=== PATIENT | female | born 1940 | race African-American/Black ===

== ENCOUNTER 2019-09-20 19:30 | Inpatient (IN) | payer BC ==
[~2019-09-20] VITALS: Ht 167.6 cm; Wt 54.4 kg
--- NOTE | 2019-09-20 19:32 | Emergency Room Report ---
History of Present Illness General Chief Complaint: General Complaint Source: EMS (Misbah Galeano MD) Present Illness HPI Patient is a 79-year-old female presents after increased generalized weakness and decreased oral intake. Patient had previously had history of hypertension. She was noted to have increased lethargy and not getting out of bed for several days. She had previously been ambulatory. She had not been vomiting or having any diarrhea. Prior history of thyroid disease. Patient had been brought in by EMS. (Misbah Galeano MD) Allergies: Coded Allergies: No Known Allergies (Unverified , 09/20/19) Patient History Past Medical History: see triage record Reviewed Nursing Documentation: PMH: Agreed; PSxH: Agreed (Misbah Galeano MD) Nursing Documentation-PMH Hx Hypertension: Yes (Misbah Galeano MD) Review of Systems All Other Systems: limited - Review of systems: Review systems is limited by patient's being a poor historian (Misbah Galeano MD) Physical Exam Vital Signs Date Time Temp Pulse Resp B/P (MAP) Pulse Ox O2 Delivery O2 Flow Rate FiO2 09/20/19 19:26 98.2 75 16 139/91 (107) 98 Room Air Sp02 EP Interpretation: reviewed, normal General Appearance: alert, GCS 15, Chronically Ill Head: atraumatic ENT: normal ENT inspection, hearing grossly normal, normal voice Neck: normal inspection, full range of motion, supple, no bony tend Respiratory: normal inspection, no respiratory distress, no retraction, no wheezing Cardiovascular #1: regular rate, rhythm, no edema Gastrointestinal: normal inspection, normal bowel sounds, non tender, soft, no guarding, no hernia Genitourinary: no CVA tenderness Musculoskeletal: normal inspection, back normal, normal range of motion Neurologic: alert, responsive, speech normal, normal inspection Psychiatric: normal inspection, judgement/insight normal, mood/affect normal (Misbah Galeano MD) Medical Decision Making Diagnostic Impression: Primary Impression: Failure to thrive in adult Additional Impressions: UTI (urinary tract infection) Qualified Codes: N30.00 - Acute cystitis without hematuria GA (acute kidney injury) ER Course Patient presented for generalized weakness. Differential diagnosis included was not limited to anemia, urinary tract infection, electrolyte abnormality, hypothyroidism, myocardial infarction, myasthenia gravis, dehydration, among others. Because of complexity of patient's case laboratory tests and imaging studies were ordered. Patient was noted to have recent decreased appetite as well as weight loss. She had not been taking oral fluids and had been staying in bed for several days. Patient was noted to be significantly dehydrated. Patient was started on IV fluids. Initially she was refusing treatment however she became more cooperative subsequently and agreed to proceed with care. Patient's laboratory testing showed some evidence of hypothyroidism and this is likely due to patient not taking her medications for several days. She was noted to have markedly elevated BUN/creatinine consistent with dehydration. Dr. Brody Xiong was contacted for inpatient management (Misbah Galeano MD) ER Course Patient signed out to me. She presents with chief complaint of failure to thrive. She is not eating or taking her medication. She is dehydrated based on the laboratory data with very high BUN and creatinine. Patient IV fluid here. She does have evidence of urinary tract infection. Antibiotics given. Will admit for IV fluid and IV antibiotics. (Clive Siddiqui MD) Last Vital Signs Date Time Temp Pulse Resp B/P (MAP) Pulse Ox O2 Delivery O2 Flow Rate FiO2 09/20/19 19:26 98.2 75 16 139/91 (107) 98 Room Air Status: unchanged (Misbah Galeano MD) Disposition: ADMITTED INPATIENT Condition: Serious Misbah Galeano MD Sep 20, 2019 19:32 Clive Siddiqui MD Sep 20, 2019 22:12
[2019-09-20 19:45] VITALS: BP 139/91
--- NOTE | 2019-09-20 19:45 | NUR ---
ED Nurse Note: Pt brought in to ED from home, family reports pt FTT, not eating or getting out of bed x5 days, Pt is A&Ox3, VSS, BS 116, family at bedside
[2019-09-20 20:45] LABS: HEMATOCRIT 45.4 % (37.0-47.0); HEMOGLOBIN 14.6 G/DL (12.0-16.0); MEAN CORPUSCULAR VOLUME 87 FL (80-99); PLATELET COUNT 186 K/UL (150-450); RED BLOOD COUNT 5.22 M/UL (4.20-5.40); RED CELL DISTRIBUTION WIDTH 11.7 % (11.6-14.8); WHITE BLOOD COUNT 9.5 K/UL (4.8-10.8)
[2019-09-20 20:46] LABS: BASOPHILS % (AUTO) 0.4 % (0.0-2.0); MONOCYTES % (AUTO) 3.7 % (1.0-10.0); NEUTROPHILS % (AUTO) 89.9 % (45.0-75.0)
[2019-09-20 20:47] LABS: ANION GAP 9 mmol/L (5-15); BLOOD UREA NITROGEN 77 mg/dL (7-18); CARBON DIOXIDE 31 MMOL/L (21-32); CHLORIDE 109 MMOL/L (98-107); CREATININE 1.3 MG/DL (0.55-1.30); POTASSIUM 4.4 MMOL/L (3.5-5.1); SODIUM 149 MMOL/L (136-145)
[2019-09-20 20:51] LABS: INR 1.1 (0.9-1.1)
[2019-09-20 20:59] LABS: ALANINE AMINOTRANSFERASE 46 U/L (12-78); ALBUMIN 3.5 G/DL (3.4-5.0); ALBUMIN/GLOBULIN RATIO 0.6 (1.0-2.7); ALKALINE PHOSPHATASE 72 U/L (46-116); ASPARTATE AMINO TRANSFERASE 31 U/L (15-37); BILIRUBIN,TOTAL 0.5 MG/DL (0.2-1.0)
--- NOTE | 2019-09-20 21:27 | NUR ---
ED Nurse Note: Urine sent to lab
[2019-09-20 21:45] VITALS: BP 141/78
[2019-09-20 21:58] LABS: APPEARANCE,URINE CLEAR; BILIRUBIN, URINE NEGATIVE (NEGATIVE); GLUCOSE, URINE (UA) NEGATIVE (NEGATIVE); KETONES,URINE 3+ (NEGATIVE); LEUKOCYTE ESTERASE ,URINE 3+ (NEGATIVE); NITRITE,URINE NEGATIVE (NEGATIVE); PH,URINE 6 (4.5-8.0); PROTEIN,URINE 2+ (NEGATIVE); UROBILINOGEN,URINE NORMAL MG/DL (0.0-1.0)
[2019-09-20 22:00] LABS: COLOR,URINE YELLOW
[2019-09-20] MEDS ORDERED: cefTRIAXone 1 GM in NS 55 ML IVPB ONE (22:15)
--- NOTE | 2019-09-20 23:25 | NUR ---
TRANSFER TO FLOOR: Patient transferred to as ordered, per Dr Nuñez. Report given to KATINA Bruno. Belongings and medications given to . Family and or S/O informed of transfer.
--- NOTE | 2019-09-21 | NUR ---
Nurse Note: Pt alert and oriented x4, lethargic, Daughter at bedside. Belongings signed, oriented to room. Family reports pt FTT, x5 days, loss of recently 09/16/19. not eating or getting out of bed x5 days, bowel sounds hypoactive. On bedrest, lying supine, bed is locked in lowest position side rails x2, bed alarm on. will continue to monitor
--- NOTE | 2019-09-21 01:43 | Diagnostic Imaging Report ---
EXAM: US Duplex Bilateral Lower Extremities Veins CLINICAL HISTORY: DVT TECHNIQUE: Real-time duplex ultrasound scan of the bilateral lower extremity veins integrating B-mode two-dimensional vascular structure, Doppler spectral analysis, color flow Doppler imaging and compression. COMPARISON: No relevant prior studies available. FINDINGS: Right deep veins: Unremarkable. No DVT in the right common femoral, femoral, proximal deep femoral or popliteal veins. The veins demonstrate normal color flow, are normally compressible, with normal phasic flow and/or augmentation response. Right superficial veins: Unremarkable. No thrombus in the visualized right great saphenous vein. Left deep veins: Unremarkable. No DVT in the left common femoral, femoral, proximal deep femoral or popliteal veins. The veins demonstrate normal color flow, are normally compressible, with normal phasic flow and/or augmentation response. Left superficial veins: Unremarkable. No thrombus in the visualized left great saphenous vein. Soft tissues: No acute findings. No popliteal cyst. IMPRESSION: Normal bilateral lower extremity duplex venous ultrasound.
[2019-09-21 04:00] VITALS: BP 136/85
--- NOTE | 2019-09-21 07:15 | NUR ---
Pt resting in bed, VS stable, Awake, A/O x 2, denies pain, no SOB noted, Dressing CDI, poor intake, encourage to increase intake, pts daughter at bedside. pts on IVF , bed in low position, bed alarm on , call light within reach, fall precaution maintained. will continue to monitor.
[2019-09-21 08:00] VITALS: BP 150/80
--- NOTE | 2019-09-21 08:01 | NUR ---
HAND-OFF: Report given to KATINA Cortes.
[2019-09-21] MEDS: Heparin 5000 units/ml inj SUBQ SCH ×2 (08:41→08:46)
[2019-09-21 10:53] LABS: ALANINE AMINOTRANSFERASE 37 U/L (12-78); ALBUMIN 2.9 G/DL (3.4-5.0); ALBUMIN/GLOBULIN RATIO 0.7 (1.0-2.7); ALKALINE PHOSPHATASE 58 U/L (46-116); ANION GAP 5 mmol/L (5-15); ASPARTATE AMINO TRANSFERASE 26 U/L (15-37); BILIRUBIN,TOTAL 0.4 MG/DL (0.2-1.0); BLOOD UREA NITROGEN 55 mg/dL (7-18); CALCIUM 10.1 MG/DL (8.5-10.1); CARBON DIOXIDE 31 MMOL/L (21-32); CHLORIDE 114 MMOL/L (98-107); CREATININE 0.9 MG/DL (0.55-1.30); POTASSIUM 4.2 MMOL/L (3.5-5.1); SODIUM 150 MMOL/L (136-145)
[2019-09-21 12:00] VITALS: BP 151/86
[2019-09-21] MEDS ORDERED: Tubing Blood Filter IV ONE (15:24)
[2019-09-21] MEDS ORDERED: D5NS 1000ml IV ONE (15:24)
[2019-09-21] MEDS ORDERED: 1/2 NS 1000ml IV ONE (15:24)
[2019-09-21] MEDS ORDERED: NS 275ml ONE (15:24)
[2019-09-21 16:00] VITALS: BP 157/87
--- NOTE | 2019-09-21 19:35 | NUR ---
NURSE NOTES: Pt is in bed, awake and verbal. No acute distress noted. Vitas stable. Pt's daughter Elena in the room with patient. Pt will be repositioned frequently.Pt's intake and output will be monitored.[facility] HD service was called by last shift nurse for HD tomorrow. Pt has CT Head and CT CHEST ABDOMEN PELVIS ordered. Pt will be kept NPO past midnight. Bed locked low in position,side rails up and call light within reach.
[2019-09-21 20:00] VITALS: BP 146/81
[2019-09-22] VITALS: BP 125/83
--- NOTE | 2019-09-22 03:00 | NUR ---
NURSE NOTES: Pt has poor oral intake, and refuses to eat.
[2019-09-22 04:00] VITALS: BP 153/76
--- NOTE | 2019-09-22 04:00 | NUR ---
NURSE NOTES: Pt is in bed, asleep. No acute distress noted. Pt is currently NPO for CT scan .
--- NOTE | 2019-09-22 05:51 | NUR ---
NURSE NOTES: Pt refused to take Synthroid dose despite education and encouragement. Pt states, " My daughter will give it to me, she is coming".
--- NOTE | 2019-09-22 07:25 | NUR ---
HAND-OFF: Report given to Jean RILEY RN.
[2019-09-22 07:31] LABS: ALANINE AMINOTRANSFERASE 34 U/L (12-78); ALBUMIN 2.8 G/DL (3.4-5.0); ALBUMIN/GLOBULIN RATIO 0.7 (1.0-2.7); ALKALINE PHOSPHATASE 53 U/L (46-116); ANION GAP 9 mmol/L (5-15); ASPARTATE AMINO TRANSFERASE 26 U/L (15-37); BILIRUBIN,TOTAL 0.5 MG/DL (0.2-1.0); BLOOD UREA NITROGEN 39 mg/dL (7-18); CALCIUM 9.8 MG/DL (8.5-10.1); CARBON DIOXIDE 29 MMOL/L (21-32); CHLORIDE 116 MMOL/L (98-107); CREATININE 0.7 MG/DL (0.55-1.30); POTASSIUM 3.8 MMOL/L (3.5-5.1); SODIUM 154 MMOL/L (136-145)
--- NOTE | 2019-09-22 07:53 | NUR ---
NURSE NOTES: RN EDUCATED PT ON PLAN FOR TODAY, INCLUDING SCHEDULED MEDICATIONS AT 0900HRS AND PLAN FOR CT HEAD AND CT CHEST/ABDOMEN/PELVIS. PT KEPT REPEATING "I'M FINE" AND STATED SHE DID NOT WANT TO TAKE HER MEDICATIONS. PT REFUSED TO ELABORATE WHY SHE DIDN'T WANT TO TAKE MEDICATIONS. PT RESTING IN BED, IN NO APPARENT DISTRESS AT THIS TIME. WILL CONTINUE TO MONITOR.
[2019-09-22 08:00] VITALS: BP 158/88
[2019-09-22] MEDS: Heparin 5000 units/ml inj SUBQ SCH ×2 (09:00→21:00)
--- NOTE | 2019-09-22 09:40 | NUR ---
PT EVALUATION NOTE Patient seen for initial evaluation. Patient presents with generalized weakness and impaired functional mobility which affects patient's ability to perform mobility tasks safely. Patient requires min assist for bed mobility. Patient declined OOB activities. Patient will benefit from skilled inpatient PT intervention to address strength, balance and safety for improved functional mobility. Recommend discharge to SNF for further rehab once medically cleared by MD. Patient may benefit from FWW for ambulation. Addendum: 09/22/19 at 1300 by YULIA LARA PT Amended: Links added.
--- NOTE | 2019-09-22 10:52 | NUR ---
NURSE NOTES: PT REFUSING CT HEAD AND CT CHEST/A/P. DR GAR MADE AWARE WITH NEW ORDERS FOR PT/OT. MADE AWARE PT REFUSED PHYSICAL THERAPY AND NO OT SERVICES AVAILABLE. NO NEW ORDERS RECEIVED.
--- NOTE | 2019-09-22 11:21 | General Progress Note ---
Assessment/Plan Problem List: (1) UTI (urinary tract infection) ICD Codes: N39.0 - Urinary tract infection, site not specified SNOMED: 34596642 Qualifiers: Qualified Codes: N30.00 - Acute cystitis without hematuria (2) GA (acute kidney injury) ICD Codes: N17.9 - Acute kidney failure, unspecified SNOMED: 97757743, 3691540 (3) Failure to thrive in adult ICD Codes: R62.7 - Adult failure to thrive SNOMED: 517343945 Status: stable, not improved Assessment/Plan: hypotonic ivf added remeron thyroid replacement pt/ot will need snf- family refusing to take pt home Subjective ROS Limited/Unobtainable: No Constitutional: Reports: malaise, weakness HEENT: Reports: no symptoms Cardiovascular: Reports: no symptoms Respiratory: Reports: no symptoms Gastrointestinal/Abdominal: Reports: poor appetite, poor fluid intake Genitourinary: Reports: no symptoms Neurologic/Psychiatric: Reports: no symptoms Endocrine: Reports: no symptoms Hematologic/Lymphatic: Reports: no symptoms Allergies: Coded Allergies: No Known Allergies (Unverified , 09/20/19) Subjective refusing ct. still with poor pos. labs noted Objective Last 24 Hour Vital Signs Date Time Temp Pulse Resp B/P (MAP) Pulse Ox O2 Delivery O2 Flow Rate FiO2 09/22/19 09:00 Room Air 09/22/19 08:00 97.4 53 16 158/88 (111) 98 09/22/19 04:00 97.4 58 16 153/76 (101) 98 09/22/19 00:00 97.5 55 16 125/83 (97) 99 09/21/19 21:00 Room Air 09/21/19 20:00 97.3 55 16 146/81 (102) 96 09/21/19 16:00 97.5 55 19 157/87 (110) 99 09/21/19 12:00 97.5 52 18 151/86 (107) 95 09/21/19 11:56 Room Air Intake and Output 09/21/19 09/22/19 19:00 07:00 Intake Total 100 ml 1100 ml Balance 100 ml 1100 ml Intake IV Total 100 ml 1100 ml # Voids 1 Laboratory Tests 09/22/19 05:25: Sodium Level 154H, Potassium Level 3.8, Chloride Level 116H, Carbon Dioxide Level 29, Anion Gap 9, Blood Urea Nitrogen 39H, Creatinine 0.7, Estimat Glomerular Filtration Rate , Glucose Level 82, Calcium Level 9.8, Total Bilirubin 0.5, Aspartate Amino Transf (AST/SGOT) 26, Alanine Aminotransferase ( ALT/SGPT) 34, Alkaline Phosphatase 53, Total Protein 6.9, Albumin 2.8L, Globulin 4.1, Albumin/Globulin Ratio 0.7L Height (Feet): 5 Height (Inches): 6.00 Weight (Pounds): 120 General Appearance: WD/WN, alert Neck: supple Cardiovascular: regular rhythm Respiratory/Chest: chest wall non-tender, lungs clear, normal breath sounds Abdomen: normal bowel sounds, non tender, soft, no organomegaly Edema: no edema noted Arm (L), no edema noted Arm (R), no edema noted Leg (L), no edema noted Leg (R), no edema noted Pedal (L), no edema noted Pedal (R), no edema noted Generalized Brody Xiong MD Sep 22, 2019 11:21
[2019-09-22 12:00] VITALS: BP 138/80
--- NOTE | 2019-09-22 13:00 | History and Physical Report ---
DATE OF ADMISSION: 09/20/2019 CHIEF COMPLAINT: Failure to thrive, dehydration, and hyponatremia. HISTORY OF PRESENT ILLNESS: The patient is a 79-year-old female. She has history of hypothyroidism and hypertensive heart disease. She was recently brought in to her daughter's house. According to the patient's daughter, she has not been eating well for several weeks. Of note, her whom she has been taken care of last Geoffrey at home. The patient has been sleeping and not eating. She has not been taking medications. Her daughter brought her to the emergency room. On evaluation there, labs were significant for sodium 149 and TSH of 9. She has been started on IV hydration and is now admitted for further evaluation and care. PAST MEDICAL HISTORY: As above. PAST SURGICAL HISTORY: None. CURRENT MEDICATIONS: Reconciled and reviewed. ALLERGIES: None. FAMILY HISTORY: None. SOCIAL HISTORY: Negative for tobacco, ethanol, or drugs. REVIEW OF SYSTEMS: Negative except for poor p.o. intake and fatigue. PHYSICAL EXAMINATION: VITAL SIGNS: Temperature 97.5 degrees, pulse 54, respirations 19, and blood pressure 136/85. GENERAL: The patient is a well-developed, thin female, in no apparent distress. She is awake and alert. She is actually eating breakfast. HEART: Regular rate and rhythm. LUNGS: Clear. ABDOMEN: Soft. EXTREMITIES: No clubbing, cyanosis, or edema. LABORATORY DATA: Labs were reviewed. ASSESSMENT: This is a 79-year-old female with complaints of failure to thrive, hyponatremia, dehydration, and hypothyroidism. PLAN: 1. Gentle hydration. 2. Thyroid replacement therapy. 3. Antibiotics for possible UTI. 4. Followup urine culture results. 5. PT, OT, and ST evaluations will be obtained. We will obtain a full body CT scan including the head. Brody Xiong M.D. DR: Kwame JOB#: [id number] CC:
--- NOTE | 2019-09-22 13:40 | NUR ---
NURSE NOTES: PT VERY RESISTANT TO CARE. AT FIRST, REFUSED RN TO CHECK IF PT NEEDED TO BE CHANGED. PT AGREED TO BE CLEANED AND REPOSITIONED AFTER CONSIDERABLE PERSUASION FROM RN AND GRANDSON AT BEDSIDE. PT ALLOWED RN TO CHANGE BILATERAL BUTTOCK DRESSING. IN NO APPARENT DISTRESS AT THIS TIME. WILL CONTINUE TO MONITOR.
--- NOTE | 2019-09-22 13:55 | NUR ---
CASE MANAGEMENT:INITIAL REVIEW 09/21/19 79 YR OLD FEMALE BIBA FROM HOME CC;ALTERED MENTAL STATUS SI;FAILURE TO THRIVE. GA. UTI. 98.2 75 18 141/78 98% RA BUN 77 URINE BLOOD 4+, PROTEN 2+, KETONES 3+, RBC 2-4, WBC 5-10 IS;IVF NS CEFTRIAXONE IV ADMITTED TO MED SURG CASE MANAGEMENT:REVIEW SI;FAILURE TO THRIVE. GA. UTI. 97.3 53 16 158/88 95% RA NA+ 150 BUN 55 IS;IVF NSS 100ML HR MED SURG STATUS DCP;TO SNF
--- NOTE | 2019-09-22 13:55 | NUR ---
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 CURRENT DIET:Regular/ pureed moist PO DIET RECOMMENDATIONS: Liberalized REGULAR/ texture per SOCIAL SCIENCE TEACHER ADDITIONAL RECOMMENDATIONS: * Calibrated bedscale wt for accurate CBW * Wound healing: add MVI x1, Vit C 250mg QD, ZnSO4 220mg QD x 10 days add Enmanuel 1pkt BID * Add Glucerna TID w/ meals * Monitor BGs closely- A1C 6.4 * Consider appetite stimulant w/ con't poor PO * SOCIAL SCIENCE TEACHER eval for appropriate texture: pt states does not want pureed
--- NOTE | 2019-09-22 14:25 | Consultation ---
History of Present Illness General Date patient seen: Sep 22, 2019 Reason for Hospitalization: General Complaint Present Illness HPI 79-year-old female presents after increased generalized weakness and decreased oral intake. Patient had previously had history of hypertension. She was noted to have increased lethargy and not getting out of bed for several days. She had previously been ambulatory. She had not been vomiting or having any diarrhea. Prior history of thyroid disease. Patient had been brought in by EMS. Admitted for work up, care and management. on admission noted to have large sacral wound. surgery called to evaluate. son at bedside and states was living alone until last week now with family Allergies: Coded Allergies: No Known Allergies (Unverified , 09/20/19) Patient History Limited by: age History Provided By: Patient, Family Member, Medical Record, PMD Healthcare decision maker Resuscitation status Advanced Directive on File Past Medical/Surgical History Past Medical/Surgical History: (1) Decubitus ulcer (2) Failure to thrive in adult (3) UTI (urinary tract infection) (4) GA (acute kidney injury) Review of Systems Review of Symptoms General ROS: no weight loss or fever Psychological ROS: no depression or mood changes, no memory loss Ophthalmic ROS: no visual changes or eye irritation ENT ROS: no nasal congestion, hearing loss, dizziness Allergy and Immunology ROS: no allergic symptoms or urticaria Hematological and Lymphatic ROS: no swollen glands, unusual bleeding or bruising Endocrine ROS: no polyuria, polydipsia, weight changes, temperature intolerance Respiratory ROS: no cough, shortness of breath, or wheezing Cardiovascular ROS: no chest pain or dyspnea on exertion Gastrointestinal ROS: denies abdominal pain, bright red blood in stool. Musculoskeletal ROS: no myalgias or arthralgias Neurological ROS: no TIA or stroke symptoms Dermatological ROS: no new or changing skin lesions, rashes or pruritis Physical Exam Physical Exam General appearance: alert, cooperative, no distress, appears stated age Head: Normocephalic, without obvious abnormality, atraumatic Eyes: conjunctivae/corneas clear. PERRL, EOM's intact. Fundi benign Throat: Lips, mucosa, and tongue normal. Teeth and gums normal Neck: supple, symmetrical, trachea midline, no adenopathy, thyroid: not enlarged, symmetric, no tenderness/mass/nodules, no carotid bruit and no JVD Lungs: clear to auscultation bilaterally Heart: regular rate and rhythm, S1, S2 normal, no murmur, click, rub or gallop Abdomen: soft, non-tender. Bowel sounds normal. No masses, no organomegaly Extremities: extremities normal, atraumatic, no cyanosis or edema Pulses: 2+ and symmetric Skin: Skin color, texture, turgor normal. No rashes or lesions Neurologic: Grossly normal Last 24 Hour Vital Signs Date Time Temp Pulse Resp B/P (MAP) Pulse Ox O2 Delivery O2 Flow Rate FiO2 09/22/19 12:00 98.7 60 16 138/80 (99) 100 09/22/19 09:00 Room Air 09/22/19 08:00 97.4 53 16 158/88 (111) 98 09/22/19 04:00 97.4 58 16 153/76 (101) 98 09/22/19 00:00 97.5 55 16 125/83 (97) 99 09/21/19 21:00 Room Air 09/21/19 20:00 97.3 55 16 146/81 (102) 96 09/21/19 16:00 97.5 55 19 157/87 (110) 99 Intake and Output 09/21/19 09/22/19 19:00 07:00 Intake Total 100 ml 1100 ml Balance 100 ml 1100 ml Intake IV Total 100 ml 1100 ml # Voids 1 Laboratory Tests Test 09/22/19 05:25 Sodium Level 154 MMOL/L (136-145) H Potassium Level 3.8 MMOL/L (3.5-5.1) Chloride Level 116 MMOL/L (98-107) H Carbon Dioxide Level 29 MMOL/L (21-32) Anion Gap 9 mmol/L (5-15) Blood Urea Nitrogen 39 mg/dL (7-18) H Creatinine 0.7 MG/DL (0.55-1.30) Estimat Glomerular Filtration Rate mL/min (>60) Glucose Level 82 MG/DL (74-106) Calcium Level 9.8 MG/DL (8.5-10.1) Total Bilirubin 0.5 MG/DL (0.2-1.0) Aspartate Amino Transf (AST/SGOT) 26 U/L (15-37) Alanine Aminotransferase (ALT/SGPT) 34 U/L (12-78) Alkaline Phosphatase 53 U/L (46-116) Total Protein 6.9 G/DL (6.4-8.2) Albumin 2.8 G/DL (3.4-5.0) L Globulin 4.1 g/dL Albumin/Globulin Ratio 0.7 (1.0-2.7) L Height (Feet): 5 Height (Inches): 6.00 Weight (Pounds): 120 Medications Current Medications Medications (Trade) Dose Ordered Sig/Dong Route PRN Reason Start Time Stop Time Status Last Admin Dose Admin Acetaminophen (Tylenol) 650 mg Q4H PRN ORAL Mild Pain/Temp > 100.5 09/20/19 21:45 10/20/19 21:44 Barium Sulfate (Readi-Cat 2) 450 ml NOW PRN ORAL Radiology Procedure 09/21/19 09:15 09/23/19 09:07 Dextrose 1,000 ml @ 75 mls/hr [id number] IV 09/22/19 11:30 10/22/19 11:29 09/22/19 11:42 Heparin Sodium (Porcine) (Heparin 5000 units/ml) 5,000 units EVERY 12 HOURS SUBQ 09/21/19 09:00 10/21/19 08:59 Levothyroxine Sodium (Synthroid) 100 mcg DAILY@0630 ORAL 09/21/19 06:30 10/21/19 06:29 09/21/19 06:30 Ondansetron HCl (Zofran) 4 mg Q6H PRN IVP Nausea & Vomiting 09/20/19 21:45 10/20/19 21:44 Assessment/Plan Problem List: (1) Decubitus ulcer Assessment & Plan: patient presented with large area of skin loss epidermal in sacral region with DTI pressure injury and associate incontinence component. wound washed and dressings applied discussed importance of care with patient and family wash daily with NS, apply therahoney and optifoam dressing to sacral wound daily and prn turn q2 hour off load pressure monitor for incontinence and change accordingly nutritional optimization ICD Codes: L89.90 - Pressure ulcer of unspecified site, unspecified stage SNOMED: 726856125 (2) Failure to thrive in adult Assessment & Plan: DAILY ESTIMATED NEEDS: Needs based on Wound/ 51.8kg 25-30 kcals/kg 0392-0610 total kcals 1.25-1.5 g protein/kg 65-78 g total protein 25-30 mL/kg 5065-9082 total fluid mLs NUTRITION DIAGNOSIS: Inadequate oral intake R/T decreased appetite, recent life stress as evidenced by pt admitted w/ FTT dx, refusing to eat x 5 days 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 CURRENT DIET:Regular/ pureed moist PO DIET RECOMMENDATIONS: Liberalized REGULAR/ texture per RESTORATIVE CARE TECHNICIAN ADDITIONAL RECOMMENDATIONS: * Calibrated bedscale wt for accurate CBW * Wound healing: add MVI x1, Vit C 250mg QD, ZnSO4 220mg QD x 10 days add Enmanuel 1pkt BID * Add Glucerna TID w/ meals * Monitor BGs closely- A1C 6.4 * Consider appetite stimulant w/ con't poor PO * RESTORATIVE CARE TECHNICIAN eval for appropriate texture: pt states does not want pureed ICD Codes: R62.7 - Adult failure to thrive SNOMED: [id number] Osiel Corona Sep 22, 2019 14:25
[2019-09-22 16:00] VITALS: BP 133/78
--- NOTE | 2019-09-22 17:05 | NUR ---
CASE MANAGEMENT:FAMILY COMMUNICATION SPOKE WITH PATIENTS DAUGHTERSHEKHAR - NEXT OF KIN ON FACE SHEET STATES PATIENT IS TO RETURN TO HER HOME UPON DISCHARGE ONLY IF PATIENT IS EATING, ABLE TO AMBULATE AND PROVIDE SELF CARE. DAUGHTER REQUESTS ECF/SNF PLACEMENT UPON DISCHARGE IF PATIENT IS NOT ABLE TO FULLY PERFORM ALL ADL'S SHE IS NOT ABLE TO CARE FOR HER TO THAT CAPACITY.
--- NOTE | 2019-09-22 17:27 | NUR ---
CALL RECEIVED FROM DAUGHTER SHEKHAR FULTON DAUGHTER STATES PATIENTS ON 09/16/19, STATES HER DECLINE BEGAN QUICKLY THEREAFTER AND FEELS ITS THE REASON FOR HER RECENT DECLINE IN HEALTH STATUS AND REASON SHE STOPPED EATING. REQUESTS TO HAVE PATIENTS SS# VERIFIED IF POSSIBLE PATIENT DOES HAVE INSURANCE/MEDICARE NEXT OF KIN, SHEKHAR FULTON, ON FACE SHEET P; [phone]
--- NOTE | 2019-09-22 19:28 | NUR ---
HAND-OFF: Report given to Sahil WOODRUFF RN.
[2019-09-22 20:00] VITALS: BP 134/83
[2019-09-23] VITALS: BP 131/79
[2019-09-23 04:00] VITALS: BP_SYST 100; BP_SYST 128; BP_DIAS 48; BP_DIAS 80
--- NOTE | 2019-09-23 04:05 | NUR ---
NURSE NOTES: Pt is offered food and hydration, however, pt refused everything PO including Meds.
--- NOTE | 2019-09-23 06:03 | NUR ---
NURSE NOTES: Pt refused blood draw for labs.
--- NOTE | 2019-09-23 07:35 | NUR ---
HAND-OFF: Report given to KATINA Jeff. Addendum: 09/23/19 at 0749 by SABA WOODRUFF RN RN Disregard above note; report given to KATINA Burgos
--- NOTE | 2019-09-23 07:57 | NUR ---
NURSE NOTES: patient awake alert, no sob. no distress. call light within reach. no c/o pain. anxious to go home. ivf running.
[2019-09-23 08:00] VITALS: BP 128/82
[2019-09-23] MEDS: Heparin 5000 units/ml inj SUBQ SCH ×2 (08:21→21:00)
--- NOTE | 2019-09-23 10:48 | NUR ---
CASE MANAGEMENT:REVIEW 09/23/18 SI: HYPONATREMIA. DEHYDRATION. FTT 98.2 70 18 128/82 100% ON RA IS: IVF@75/HR HEPARIN SQ Q12 SYNTHROID PO QD : MED/SURG STATUS DCP: PATIENT IS FROM HOME
--- NOTE | 2019-09-23 14:09 | NUR ---
PT notes: patient declined treatment today despite encouragement; RN aware of the situation; family member at bedside at the time of refusal; will follow up next treatment schedule.
--- NOTE | 2019-09-23 16:50 | Surgery Progress Note ---
Surgery Progress Note Subjective Additional Comments no acute events comfortable stable Objective Last 24 Hour Vital Signs Date Time Temp Pulse Resp B/P (MAP) Pulse Ox O2 Delivery O2 Flow Rate FiO2 09/23/19 08:00 98.2 70 18 128/82 (97) 100 09/23/19 07:27 Room Air 09/23/19 04:00 97.4 64 18 128/80 (96) 100 09/23/19 00:00 98.6 62 20 131/79 (96) 99 09/22/19 21:00 Room Air 09/22/19 20:00 98.1 80 20 134/83 (100) 96 I&O Intake and Output 09/22/19 09/23/19 19:00 07:00 Intake Total 1090 ml 900 ml Balance 1090 ml 900 ml Intake Oral 240 ml IV Total 850 ml 900 ml # Voids 2 2 Dressing: saturated Wound: clean Cardiovascular: RSR Respiratory: clear Abdomen: soft, non-tender, present bowel sounds Extremities: no tenderness, no cyanosis Plan Problems: (1) Decubitus ulcer Assessment & Plan: patient presented with large area of skin loss epidermal in sacral region with DTI pressure injury and associate incontinence component. wound washed and dressings applied discussed importance of care with patient and family wash daily with NS, apply therahoney and optifoam dressing to sacral wound daily and prn turn q2 hour off load pressure monitor for incontinence and change accordingly nutritional optimization (2) Failure to thrive in adult Assessment & Plan: DAILY ESTIMATED NEEDS: Needs based on Wound/ 51.8kg 25-30 kcals/kg 9693-3940 total kcals 1.25-1.5 g protein/kg 65-78 g total protein 25-30 mL/kg 4289-3904 total fluid mLs NUTRITION DIAGNOSIS: Inadequate oral intake R/T decreased appetite, recent life stress as evidenced by pt admitted w/ FTT dx, refusing to eat x 5 days 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 CURRENT DIET:Regular/ pureed moist PO DIET RECOMMENDATIONS: Liberalized REGULAR/ texture per UNEMPLOYMENT INSURANCE DIRECTOR ADDITIONAL RECOMMENDATIONS: * Calibrated bedscale wt for accurate CBW * Wound healing: add MVI x1, Vit C 250mg QD, ZnSO4 220mg QD x 10 days add Enmanuel 1pkt BID * Add Glucerna TID w/ meals * Monitor BGs closely- A1C 6.4 * Consider appetite stimulant w/ con't poor PO * UNEMPLOYMENT INSURANCE DIRECTOR eval for appropriate texture: pt states does not want pureed Osiel Corona Sep 23, 2019 16:50
--- NOTE | 2019-09-23 18:08 | NUR ---
NURSE NOTES: pt refused wound care on sacral area Addendum: 09/23/19 at 1828 by RAJIV LAND RN DR GAR AWARE OF PT REFUSAL OF CARE AND DTR REQUEST TO TAKE PT BACK HOME INSTEAD OF SNF. PER DCP DC TOMORROW
--- NOTE | 2019-09-23 18:24 | General Progress Note ---
Assessment/Plan Problem List: (1) UTI (urinary tract infection) ICD Codes: N39.0 - Urinary tract infection, site not specified SNOMED: 98645560 Qualifiers: Qualified Codes: N30.00 - Acute cystitis without hematuria (2) GA (acute kidney injury) ICD Codes: N17.9 - Acute kidney failure, unspecified SNOMED: 65332968, 8026804 (3) Failure to thrive in adult ICD Codes: R62.7 - Adult failure to thrive SNOMED: 053167689 Status: stable, not improved Assessment/Plan: hypotonic ivf added remeron thyroid replacement pt/ot will need snf- family ok taking pt home Subjective Constitutional: Reports: malaise HEENT: Reports: no symptoms Cardiovascular: Reports: no symptoms Respiratory: Reports: no symptoms Gastrointestinal/Abdominal: Reports: no symptoms Genitourinary: Reports: no symptoms Neurologic/Psychiatric: Reports: no symptoms Allergies: Coded Allergies: No Known Allergies (Unverified , 09/20/19) Subjective refusing ct. still with poor pos. labs noted on hypotonic ivf family no longer wants snf pt refusing to go to snf Objective Last 24 Hour Vital Signs Date Time Temp Pulse Resp B/P (MAP) Pulse Ox O2 Delivery O2 Flow Rate FiO2 09/23/19 08:00 98.2 70 18 128/82 (97) 100 09/23/19 07:27 Room Air 09/23/19 04:00 97.4 64 18 128/80 (96) 100 09/23/19 00:00 98.6 62 20 131/79 (96) 99 09/22/19 21:00 Room Air 09/22/19 20:00 98.1 80 20 134/83 (100) 96 Intake and Output 09/22/19 09/23/19 19:00 07:00 Intake Total 1090 ml 900 ml Balance 1090 ml 900 ml Intake Oral 240 ml IV Total 850 ml 900 ml # Voids 2 2 Height (Feet): 5 Height (Inches): 6.00 Weight (Pounds): 120 General Appearance: WD/WN, agitated Cardiovascular: normal peripheral pulses, normal rate, regular rhythm Respiratory/Chest: lungs clear Abdomen: normal bowel sounds, non tender, soft, no organomegaly, absent bowel sounds Edema: no edema noted Arm (L), no edema noted Arm (R), no edema noted Leg (L), no edema noted Leg (R), no edema noted Pedal (L), no edema noted Pedal (R), no edema noted Generalized Neurologic: alert, responsive Brody Xiong MD Sep 23, 2019 18:24
--- NOTE | 2019-09-23 19:20 | NUR ---
HAND-OFF: Report given to RAND AMBRIZ.
--- NOTE | 2019-09-23 19:34 | NUR ---
NURSE NOTES: Received patient in bed, laying at high-fowlers. Patient is A/O x3. Patient is unwilling to respond much in conversation. Denies pain. On room air, respirations even and unlabored. IV in Right AC running D5w at 75 mL/hr. Patient verbalizes she is to go home and that she has her own "real" nurse. RN asked the patient if she needs anything or has pain. Patient says her real nurse took care of everything for her. Rn asked the patient to assess the sacral wound, patient did not allow.
--- NOTE | 2019-09-23 21:00 | NUR ---
NURSE NOTES: RN attempted to take VS, assess sacral area and perineum. Patient refused. Several attempts done. Elena (daughter) was at bedside and asked if the patient was medicated d/t the patient's behavior. RN spoke to the daughter for 15 minutes. Attempts done with the daughter at bedside and the patient still refused all care, food and water.
--- NOTE | 2019-09-24 07:29 | NUR ---
HAND-OFF: Report given to King AMBRIZ.
--- NOTE | 2019-09-24 07:40 | NUR ---
NURSE NOTES: Patient awake, alert x2; on room air, no sing of distress and shortness of breath; no sing of chest pain; IV Right AC 20G D5W running at 75cc; patient's own cane at the bed side; side rails up x2, breaks engaged, bed at lowest position, bed alarm on; call light within reach; will keep monitoring.
[2019-09-24] MEDS: Heparin 5000 units/ml inj SUBQ SCH ×2 (08:06→21:00)
[2019-09-24 12:00] VITALS: BP 109/78
--- NOTE | 2019-09-24 13:05 | Surgery Progress Note ---
Surgery Progress Note Subjective Additional Comments no acute events comfortable stable Objective Last 24 Hour Vital Signs Date Time Temp Pulse Resp B/P (MAP) Pulse Ox O2 Delivery O2 Flow Rate FiO2 09/24/19 12:00 98.2 82 18 109/78 (88) 100 09/24/19 09:00 Room Air 09/23/19 21:00 Room Air I&O Intake and Output 09/23/19 09/24/19 19:00 07:00 Intake Total 875 ml 750 ml Balance 875 ml 750 ml Intake Oral 200 ml IV Total 675 ml 750 ml # Voids 2 Dressing: dry Wound: clean Cardiovascular: RSR Respiratory: clear Abdomen: soft, non-tender, present bowel sounds Extremities: no tenderness, no cyanosis, other Plan Problems: (1) Decubitus ulcer Assessment & Plan: patient presented with large area of skin loss epidermal in sacral region with DTI pressure injury and associate incontinence component. wound washed and dressings applied discussed importance of care with patient and family wash daily with NS, apply therahoney and optifoam dressing to sacral wound daily and prn turn q2 hour off load pressure monitor for incontinence and change accordingly nutritional optimization (2) Failure to thrive in adult Assessment & Plan: DAILY ESTIMATED NEEDS: Needs based on Wound/ 51.8kg 25-30 kcals/kg 9001-2184 total kcals 1.25-1.5 g protein/kg 65-78 g total protein 25-30 mL/kg 6839-7257 total fluid mLs NUTRITION DIAGNOSIS: Inadequate oral intake R/T decreased appetite, recent life stress as evidenced by pt admitted w/ FTT dx, 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 CURRENT DIET:Regular/ pureed moist PO DIET RECOMMENDATIONS: Liberalized REGULAR/ texture per CUSTOMER LEADER ADDITIONAL RECOMMENDATIONS: * Calibrated bedscale wt for accurate CBW * Wound healing: add MVI x1, Vit C 250mg QD, ZnSO4 220mg QD x 10 days add Enmanuel 1pkt BID * Add Glucerna TID w/ meals * Monitor BGs closely- A1C 6.4 * Consider appetite stimulant w/ con't poor PO * CUSTOMER LEADER eval for appropriate texture: pt states does not want pureed Osiel Corona Sep 24, 2019 13:05
--- NOTE | 2019-09-24 13:57 | CDS Physician Query ---
Clarification is required for compliance, coding accuracy, and to reflect severity of illness for this patient. Dear Osiel Rivers Date: 09/24/2019 CDS name: Jef Morgan Problems: (1) Decubitus ulcer Assessment & Plan: patient presented with large area of skin loss epidermal in sacral region with DTI pressure injury and associate incontinence component. wound washed and dressings applied discussed importance of care with patient and family wash daily with NS, apply therahoney and optifoam dressing to sacral wound daily and prn turn q2 hour off load pressure monitor for incontinence and change accordingly There is clinical documentation of a wound. Kindly specify the type and the severity of the wound. [] Decubitus Ulcer: Site___sacral___ Stage__2____ [] Non-Healing Traumatic Laceration [] Non-Healing Burn: Percentage Depth [] Diabetic Ulcer [] Wound Dehiscence [] Ulcer,NOS [] Non Healing Post-Operative Wound [] Other []Clinically Undetermined Present on Admission: [] Yes [] No [] Clinically Undetermined Physician signature Date Please also document in your Progress Notes and/or Discharge Summary and indicate if the condition was present on admission. MTDD
--- NOTE | 2019-09-24 15:09 | General Progress Note ---
Assessment/Plan Problem List: (1) UTI (urinary tract infection) ICD Codes: N39.0 - Urinary tract infection, site not specified SNOMED: 21858809 Qualifiers: Qualified Codes: N30.00 - Acute cystitis without hematuria (2) GA (acute kidney injury) ICD Codes: N17.9 - Acute kidney failure, unspecified SNOMED: 94750570, 1193751 (3) Failure to thrive in adult ICD Codes: R62.7 - Adult failure to thrive SNOMED: 175409106 Status: stable, not improved Assessment/Plan: hypotonic ivf added remeron thyroid replacement pt/ot will need snf- family ok taking pt home Subjective ROS Limited/Unobtainable: No Constitutional: Reports: malaise, weakness HEENT: Reports: no symptoms Cardiovascular: Reports: no symptoms Gastrointestinal/Abdominal: Reports: poor appetite Genitourinary: Reports: no symptoms Neurologic/Psychiatric: Reports: anxiety Endocrine: Reports: no symptoms Hematologic/Lymphatic: Reports: no symptoms Allergies: Coded Allergies: No Known Allergies (Unverified , 09/20/19) All Systems: reviewed and negative except above Subjective no events. on ivf await labs encourage pos seems to be eating a little better dc planing home- refusing snf Objective Last 24 Hour Vital Signs Date Time Temp Pulse Resp B/P (MAP) Pulse Ox O2 Delivery O2 Flow Rate FiO2 09/24/19 12:00 98.2 82 18 109/78 (88) 100 09/24/19 09:00 Room Air 09/23/19 21:00 Room Air Intake and Output 09/23/19 09/24/19 19:00 07:00 Intake Total 875 ml 750 ml Balance 875 ml 750 ml Intake Oral 200 ml IV Total 675 ml 750 ml # Voids 2 Height (Feet): 5 Height (Inches): 6.00 Weight (Pounds): 120 Brody Xiong MD Sep 24, 2019 15:09
--- NOTE | 2019-09-24 15:58 | NUR ---
NURSE NOTES: Wound care provided, patient tolerated well; wound picture taken and uploaded on patient's file;
[2019-09-24 16:00] VITALS: BP 143/97
--- NOTE | 2019-09-24 19:17 | NUR ---
HAND-OFF: Report given to KATINA Gonzalez.
--- NOTE | 2019-09-24 19:49 | NUR ---
NURSE NOTES: Patient is in bed,awake, alert and verbal. Breathing on room air, no acute distress noted. bed at low and locked position, bed alarm on. Call light within reach. Will continue to monitor the pt.
[2019-09-24 20:00] VITALS: BP 96/64
[2019-09-25] VITALS: BP 105/70
[2019-09-25 04:00] VITALS: BP 96/68
--- NOTE | 2019-09-25 07:15 | NUR ---
HAND-OFF: Report given to KATINA Hoyos.
--- NOTE | 2019-09-25 07:51 | NUR ---
NURSE NOTES: Patient awake, alert x3; no room air, no sing of distress and shortness of breath; no sing of chest pain; IV Right AC 20G D5W running 75cc; bed side Commode within reach; patient's own cane at the bed side; side rails up x2, breaks engaged, bed at lowest position, bed alarm on; call light within reach; will keep monitoring;
[2019-09-25 08:00] VITALS: BP 121/72
--- NOTE | 2019-09-25 08:49 | General Progress Note ---
Assessment/Plan Problem List: (1) UTI (urinary tract infection) ICD Codes: N39.0 - Urinary tract infection, site not specified SNOMED: 95623169 Qualifiers: Qualified Codes: N30.00 - Acute cystitis without hematuria (2) GA (acute kidney injury) ICD Codes: N17.9 - Acute kidney failure, unspecified SNOMED: 85575010, 5576831 (3) Failure to thrive in adult ICD Codes: R62.7 - Adult failure to thrive SNOMED: 180850556 Status: stable, not improved Assessment/Plan: hypotonic ivf added remeron await labs from this am thyroid replacement pt/o refusing snf placement dc planning tomorrow if Na ok Subjective ROS Limited/Unobtainable: No Constitutional: Reports: malaise, weakness HEENT: Reports: no symptoms Cardiovascular: Reports: no symptoms Respiratory: Reports: no symptoms Gastrointestinal/Abdominal: Reports: no symptoms Genitourinary: Reports: no symptoms Neurologic/Psychiatric: Reports: no symptoms Endocrine: Reports: no symptoms Hematologic/Lymphatic: Reports: no symptoms Allergies: Coded Allergies: No Known Allergies (Unverified , 09/20/19) All Systems: reviewed and negative except above Subjective no events. w/o complaints. eating better. no fevers or chills. labs pending Objective Last 24 Hour Vital Signs Date Time Temp Pulse Resp B/P (MAP) Pulse Ox O2 Delivery O2 Flow Rate FiO2 09/25/19 04:00 98.0 80 18 96/68 (77) 97 09/25/19 00:00 98.8 83 18 105/70 (82) 97 09/24/19 21:00 Room Air 09/24/19 20:00 98.9 90 18 96/64 (75) 96 09/24/19 16:00 95.4 79 18 143/97 (112) 97 09/24/19 12:00 98.2 82 18 109/78 (88) 100 09/24/19 09:00 Room Air Intake and Output 09/24/19 09/25/19 19:00 07:00 Intake Total 1545 ml 315 ml Output Total 400 ml Balance 1145 ml 315 ml Intake Oral 720 ml 240 ml IV Total 825 ml 75 ml Output Urine Total 400 ml # Voids 5 6 Laboratory Tests 09/25/19 06:55: Sodium Level [Pending], Potassium Level [Pending], Chloride Level [Pending], Carbon Dioxide Level [Pending], Blood Urea Nitrogen [Pending], Creatinine [ Pending], Estimat Glomerular Filtration Rate [Pending], Glucose Level [Pending] , Calcium Level [Pending], Total Bilirubin [Pending], Aspartate Amino Transf ( AST/SGOT) [Pending], Alanine Aminotransferase (ALT/SGPT) [Pending], Alkaline Phosphatase [Pending], Total Protein [Pending], Albumin [Pending], Globulin [ Pending] Height (Feet): 5 Height (Inches): 6.00 Weight (Pounds): 120 Brody Xiong MD Sep 25, 2019 08:49
[2019-09-25 08:58] LABS: ALANINE AMINOTRANSFERASE 39 U/L (12-78); ALBUMIN 2.3 G/DL (3.4-5.0); ALBUMIN/GLOBULIN RATIO 0.7 (1.0-2.7); ALKALINE PHOSPHATASE 61 U/L (46-116); ANION GAP 6 mmol/L (5-15); ASPARTATE AMINO TRANSFERASE 33 U/L (15-37); BILIRUBIN,TOTAL 0.3 MG/DL (0.2-1.0); BLOOD UREA NITROGEN 14 mg/dL (7-18); CALCIUM 8.8 MG/DL (8.5-10.1); CARBON DIOXIDE 32 MMOL/L (21-32); CHLORIDE 102 MMOL/L (98-107); CREATININE 0.7 MG/DL (0.55-1.30); POTASSIUM 3.9 MMOL/L (3.5-5.1); SODIUM 139 MMOL/L (136-145)
[2019-09-25] MEDS: Heparin 5000 units/ml inj SUBQ SCH ×2 (09:17→20:25)
[2019-09-25 12:00] VITALS: BP 120/64
[2019-09-25 16:00] VITALS: BP 122/71
--- NOTE | 2019-09-25 17:50 | NUR ---
P.T. NOTES ADDENDUM S/P: APPROACHED PATIENT IN THE PM. PATIENT FOUND LYING IN A SEMI-VERA'S POSITION IN BED UPON ARRIVAL. PATIENT DECLINED P.T. TX. PATIENT STATED, THAT SHE WOULD, PARTAKE IN P.T. ACTIVITIES TOMORROW. RN AWARE OF PATIENT'S STATUS. WILL F/U. PETTY.
--- NOTE | 2019-09-25 19:23 | NUR ---
HAND-OFF: Report given to KATINA Marrero.
--- NOTE | 2019-09-25 19:47 | NUR ---
NURSE NOTES: PATIENT IN BED, AWAKE AND ORIENTED. NO COMPLAINTS OF PAIN AT THIS TIME. NO DISTRESS NOTED. PATIENT VERBALIZED UNDERSTANDING OF USING CALL LIGHT FOR ASSISTANCE. BED IN LOWEST POSITION, CALL LIGHT WITHIN REACH, BED ALARM ON. WILL CONTINUE TO MONITOR.
[2019-09-25 20:00] VITALS: BP 122/72
--- NOTE | 2019-09-25 20:04 | Surgery Progress Note ---
Surgery Progress Note Subjective Additional Comments labs okay venous duplex noted exam stable Objective Last 24 Hour Vital Signs Date Time Temp Pulse Resp B/P (MAP) Pulse Ox O2 Delivery O2 Flow Rate FiO2 09/25/19 16:00 97.4 80 18 122/71 (88) 100 09/25/19 12:00 98.0 75 18 120/64 (82) 99 09/25/19 09:00 Room Air 09/25/19 08:00 98.3 91 18 121/72 (88) 99 09/25/19 04:00 98.0 80 18 96/68 (77) 97 09/25/19 00:00 98.8 83 18 105/70 (82) 97 09/24/19 21:00 Room Air I&O Intake and Output 09/24/19 09/25/19 19:00 07:00 Intake Total 1545 ml 390 ml Output Total 400 ml Balance 1145 ml 390 ml Intake Oral 720 ml 240 ml IV Total 825 ml 150 ml Output Urine Total 400 ml # Voids 5 6 Dressing: other Wound: other Drains: other Cardiovascular: RSR Respiratory: clear Abdomen: soft, non-tender, present bowel sounds Extremities: no edema, no tenderness, no cyanosis Laboratory Tests Test 09/25/19 06:55 Sodium Level 139 MMOL/L (136-145) Potassium Level 3.9 MMOL/L (3.5-5.1) Chloride Level 102 MMOL/L (98-107) Carbon Dioxide Level 32 MMOL/L (21-32) Anion Gap 6 mmol/L (5-15) Blood Urea Nitrogen 14 mg/dL (7-18) Creatinine 0.7 MG/DL (0.55-1.30) Estimat Glomerular Filtration Rate mL/min (>60) Glucose Level 114 MG/DL (74-106) H Calcium Level 8.8 MG/DL (8.5-10.1) Total Bilirubin 0.3 MG/DL (0.2-1.0) Aspartate Amino Transf (AST/SGOT) 33 U/L (15-37) Alanine Aminotransferase (ALT/SGPT) 39 U/L (12-78) Alkaline Phosphatase 61 U/L (46-116) Total Protein 5.8 G/DL (6.4-8.2) L Albumin 2.3 G/DL (3.4-5.0) L Globulin 3.5 g/dL Albumin/Globulin Ratio 0.7 (1.0-2.7) L Plan Problems: (1) Decubitus ulcer Assessment & Plan: patient presented with large area of skin loss epidermal in sacral region with DTI pressure injury and associate incontinence component. wound washed and dressings applied discussed importance of care with patient and family wash daily with NS, apply therahoney and optifoam dressing to sacral wound daily and prn turn q2 hour off load pressure monitor for incontinence and change accordingly nutritional optimization (2) Failure to thrive in adult Assessment & Plan: DAILY ESTIMATED NEEDS: Needs based on Wound/ 51.8kg 25-30 kcals/kg 0115-7992 total kcals 1.25-1.5 g protein/kg 65-78 g total protein 25-30 mL/kg 3086-6664 total fluid mLs NUTRITION DIAGNOSIS: Inadequate oral intake R/T decreased appetite, recent life stress as evidenced by pt admitted w/ FTT dx, refusing to eat x 5 days 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 CURRENT DIET:Regular/ pureed moist PO DIET RECOMMENDATIONS: Liberalized REGULAR/ texture per BUSINESS SOLUTIONS ARCHITECT ADDITIONAL RECOMMENDATIONS: * Calibrated bedscale wt for accurate CBW * Wound healing: add MVI x1, Vit C 250mg QD, ZnSO4 220mg QD x 10 days add Enmanuel 1pkt BID * Add Glucerna TID w/ meals * Monitor BGs closely- A1C 6.4 * Consider appetite stimulant w/ con't poor PO * BUSINESS SOLUTIONS ARCHITECT eval for appropriate texture: pt states does not want pureed Osiel Corona Sep 25, 2019 20:04
[2019-09-26 00:39] VITALS: BP 126/68
[2019-09-26 04:50] VITALS: BP 140/78
[2019-09-26 07:02] LABS: ALANINE AMINOTRANSFERASE 48 U/L (12-78); ALBUMIN 2.4 G/DL (3.4-5.0); ALBUMIN/GLOBULIN RATIO 0.6 (1.0-2.7); ALKALINE PHOSPHATASE 67 U/L (46-116); ANION GAP 4 mmol/L (5-15); ASPARTATE AMINO TRANSFERASE 33 U/L (15-37); BILIRUBIN,TOTAL 0.3 MG/DL (0.2-1.0); CARBON DIOXIDE 31 MMOL/L (21-32); CHLORIDE 102 MMOL/L (98-107); CREATININE 0.8 MG/DL (0.55-1.30); POTASSIUM 3.5 MMOL/L (3.5-5.1); SODIUM 137 MMOL/L (136-145)
[2019-09-26 07:17] LABS: BLOOD UREA NITROGEN 8 mg/dL (7-18)
--- NOTE | 2019-09-26 07:22 | NUR ---
HAND-OFF: Report given to LASHAY LOPEZ RN.
[2019-09-26 08:00] VITALS: BP 131/74
[2019-09-26] MEDS: Heparin 5000 units/ml inj SUBQ SCH ×2 (09:25→20:27)
--- NOTE | 2019-09-26 09:33 | NUR ---
CASE MANAGEMENT:REVIEW 09/24/2019 SI;FTT. GA. 95.4 94 18 96/64 96% RA IS;IVF D5W 75ML/HR HEPARIN Q12 HR LEVOTHYROXINE QD MED SURG STATUS CASE MANAGEMENT:REVIEW 09/25/2019 SI;FTT. GA. 97.4 91 18 96/68 98% RA ALB 2.3 IS; IVF D5W 75ML/HR HEPARIN Q12 HR LEVOTHYROXINE QD MED SURG STATUS CASE MANAGEMENT:REVIEW 09/26/2019 SI;FTT. 98.2 66 18 140/78 98% RA ALB 2.4 IS;IVF D5W 75ML/HR HEPARIN Q12 HR LEVOTHYROXINE QD MED SURG STATUS DCP;TO HOME
--- NOTE | 2019-09-26 09:57 | NUR ---
*-* INSURANCE *-* ALL CLINICALS AND REVIEWS HAVE BEEN FAXED TO: JEFF WALTON PLEASE FAX THE REVIEW/CLINICAL TO FX: [phone] (USE THE ID# [id number])
[2019-09-26] MEDS ORDERED: D5LR 1000 ml IV ONE (10:49)
[2019-09-26] MEDS: Docusate 100mg cap ORAL SCH ×2 (11:01→17:42)
[2019-09-26 12:00] VITALS: BP 130/80
--- NOTE | 2019-09-26 14:29 | NUR ---
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 CURRENT DIET:Regular/ pureed moist PO DIET RECOMMENDATIONS: Maintain Liberalized REGULAR/ texture per CRM MARKETING ANALYST ADDITIONAL RECOMMENDATIONS: * Calibrated bedscale wt for accurate CBW * Wound healing: add MVI x1, Vit C 250mg QD, ZnSO4 220mg QD x 10 days add Enmanuel 1pkt BID if tolerated * Add Glucerna TID w/ meals * Monitor BGs closely- A1C 6.4 * Consider appetite stimulant w/ con't poor PO * CRM MARKETING ANALYST eval for appropriate texture: pt states does not want pureed
[2019-09-26 16:00] VITALS: BP 135/73
--- NOTE | 2019-09-26 16:07 | Surgery Progress Note ---
Surgery Progress Note Subjective Symptoms: improved, pain absent Additional Comments d/c planning labs improved overall improved states she is well is participating in moving and care Objective Last 24 Hour Vital Signs Date Time Temp Pulse Resp B/P (MAP) Pulse Ox O2 Delivery O2 Flow Rate FiO2 09/26/19 12:00 98.3 70 17 130/80 (97) 99 09/26/19 09:00 Room Air 09/26/19 08:00 98.2 67 18 131/74 (93) 100 09/26/19 04:50 97.8 68 18 140/78 (98) 100 09/26/19 00:39 98.4 66 18 126/68 (87) 98 09/25/19 22:18 Room Air 09/25/19 20:00 98.6 71 18 122/72 (89) 98 I&O Intake and Output 09/25/19 09/26/19 19:00 07:00 Intake Total 900 ml 360 ml Balance 900 ml 360 ml Intake Oral 360 ml IV Total 900 ml # Voids 3 6 # Bowel Movements 1 Dressing: dry Wound: clean Cardiovascular: RSR Respiratory: clear Abdomen: soft, non-tender, present bowel sounds Extremities: no edema, no tenderness, no cyanosis Laboratory Tests Test 09/26/19 06:00 Sodium Level 137 MMOL/L (136-145) Potassium Level 3.5 MMOL/L (3.5-5.1) Chloride Level 102 MMOL/L (98-107) Carbon Dioxide Level 31 MMOL/L (21-32) Anion Gap 4 mmol/L (5-15) L Blood Urea Nitrogen 8 mg/dL (7-18) Creatinine 0.8 MG/DL (0.55-1.30) Estimat Glomerular Filtration Rate mL/min (>60) Glucose Level 116 MG/DL (74-106) H Calcium Level 9.0 MG/DL (8.5-10.1) Magnesium Level 2.2 MG/DL (1.8-2.4) Total Bilirubin 0.3 MG/DL (0.2-1.0) Aspartate Amino Transf (AST/SGOT) 33 U/L (15-37) Alanine Aminotransferase (ALT/SGPT) 48 U/L (12-78) Alkaline Phosphatase 67 U/L (46-116) Total Protein 6.4 G/DL (6.4-8.2) Albumin 2.4 G/DL (3.4-5.0) L Globulin 4.0 g/dL Albumin/Globulin Ratio 0.6 (1.0-2.7) L Vitamin B12 Level 1261 PG/ML (193-986) H Folate 11.6 NG/ML (8.6-58.9) Cortisol AM Sample Pending Plan Problems: (1) Decubitus ulcer Assessment & Plan: patient presented with large area of skin loss epidermal in sacral region with DTI pressure injury and associate incontinence component. wound washed and dressings applied discussed importance of care with patient and family wash daily with NS, apply therahoney and optifoam dressing to sacral wound daily and prn turn q2 hour off load pressure monitor for incontinence and change accordingly nutritional optimization cont with above care plan upon d/c patient more responsive to moving around and reducing pressure (2) Failure to thrive in adult Assessment & Plan: DAILY ESTIMATED NEEDS: Needs based on Wound/ 51.8kg 25-30 kcals/kg 1487-4364 total kcals 1.25-1.5 g protein/kg 65-78 g total protein 25-30 mL/kg 6162-5196 total fluid mLs NUTRITION DIAGNOSIS: Inadequate oral intake R/T decreased appetite, recent life stress as evidenced by pt admitted w/ FTT dx, 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 CURRENT DIET:Regular/ pureed moist PO DIET RECOMMENDATIONS: Liberalized REGULAR/ texture per JOINT MACHINE OPERATOR ADDITIONAL RECOMMENDATIONS: * Calibrated bedscale wt for accurate CBW * Wound healing: add MVI x1, Vit C 250mg QD, ZnSO4 220mg QD x 10 days add Enmanuel 1pkt BID * Add Glucerna TID w/ meals * Monitor BGs closely- A1C 6.4 * Consider appetite stimulant w/ con't poor PO * JOINT MACHINE OPERATOR eval for appropriate texture: pt states does not want pureed Osiel Corona Sep 26, 2019 16:07
--- NOTE | 2019-09-26 17:38 | General Progress Note ---
Assessment/Plan Problem List: (1) UTI (urinary tract infection) ICD Codes: N39.0 - Urinary tract infection, site not specified SNOMED: 04586355 Qualifiers: Qualified Codes: N30.00 - Acute cystitis without hematuria (2) GA (acute kidney injury) ICD Codes: N17.9 - Acute kidney failure, unspecified SNOMED: 29827567, 3293296 (3) Failure to thrive in adult ICD Codes: R62.7 - Adult failure to thrive SNOMED: 748008988 Status: stable, not improved Assessment/Plan: pysch eval cont remeron thyroid replacement pt/o refusing snf placement family refusing to take pt home Subjective ROS Limited/Unobtainable: No Constitutional: Reports: malaise, weakness HEENT: Reports: no symptoms Cardiovascular: Reports: no symptoms Respiratory: Reports: no symptoms Gastrointestinal/Abdominal: Reports: poor appetite Genitourinary: Reports: no symptoms Neurologic/Psychiatric: Reports: no symptoms Endocrine: Reports: no symptoms Hematologic/Lymphatic: Reports: no symptoms Allergies: Coded Allergies: No Known Allergies (Unverified , 09/20/19) All Systems: reviewed and negative except above Subjective no events. w/o complaints. eating better. no fevers or chills. refusing snf(family requesting). family refusing to take pt home. Objective Last 24 Hour Vital Signs Date Time Temp Pulse Resp B/P (MAP) Pulse Ox O2 Delivery O2 Flow Rate FiO2 09/26/19 16:00 98.4 78 16 135/73 (93) 98 09/26/19 12:00 98.3 70 17 130/80 (97) 99 09/26/19 09:00 Room Air 09/26/19 08:00 98.2 67 18 131/74 (93) 100 09/26/19 04:50 97.8 68 18 140/78 (98) 100 09/26/19 00:39 98.4 66 18 126/68 (87) 98 09/25/19 22:18 Room Air 09/25/19 20:00 98.6 71 18 122/72 (89) 98 Intake and Output 09/25/19 09/26/19 19:00 07:00 Intake Total 900 ml 360 ml Balance 900 ml 360 ml Intake Oral 360 ml IV Total 900 ml # Voids 3 6 # Bowel Movements 1 Laboratory Tests 09/26/19 06:00: Sodium Level 137, Potassium Level 3.5, Chloride Level 102, Carbon Dioxide Level 31, Anion Gap 4L, Blood Urea Nitrogen 8, Creatinine 0.8, Estimat Glomerular Filtration Rate , Glucose Level 116H, Calcium Level 9.0, Magnesium Level 2.2, Total Bilirubin 0.3, Aspartate Amino Transf (AST/SGOT) 33, Alanine Aminotransferase (ALT/SGPT) 48, Alkaline Phosphatase 67, Total Protein 6.4, Albumin 2.4L, Globulin 4.0, Albumin/Globulin Ratio 0.6L, Vitamin B12 Level 1261H , Folate 11.6, Cortisol AM Sample [Pending] Height (Feet): 5 Height (Inches): 6.00 Weight (Pounds): 120 General Appearance: WD/WN, alert Neck: supple Cardiovascular: normal rate, regular rhythm Respiratory/Chest: chest wall non-tender, lungs clear, normal breath sounds, no respiratory distress Abdomen: normal bowel sounds, non tender, soft, no organomegaly, no mass Edema: no edema noted Arm (L), no edema noted Arm (R), no edema noted Leg (L), no edema noted Leg (R), no edema noted Pedal (L), no edema noted Pedal (R), no edema noted Generalized 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
--- NOTE | 2019-09-26 18:00 | NUR ---
NURSE NOTES: changed dressing of sacral area as per dr pugh. Presenting scanty serosaguineous secretion. Cleansed with NS, pat dried, applied Therahoney, covered with Optifoam.
--- NOTE | 2019-09-26 18:15 | Progress Note ---
DATE: 09/25/2019 CARDIOLOGY PROGRESS NOTE SUBJECTIVE: The patient remains withdrawn, more alert, however, with slightly better appetite. OBJECTIVE: VITAL SIGNS: Blood pressure 96/68 earlier, now improved, heart rate 80, respiratory rate 18. Afebrile. LUNGS: Clear. CARDIAC: Regular. ABDOMEN: Soft. No edema. LABORATORY DATA: Sodium 139, potassium 3.9, bicarb 32, BUN 14, creatinine 0.7. Albumin 2.3. IMPRESSION: 1. Hypovolemia and dehydration corrected. 2. Hyponatremia, resolved. 3. Probable depression. 4. Urinary tract infection. 5. Metabolic encephalopathy. 6. Asymptomatic hypotension with no signs of end organ manifestations. 7. Moderate to severe protein-calorie malnutrition. 8. Hypothyroidism. PLAN: 1. Maintain adequate hydration. 2. Protein supplement and nutritional support. 3. Off IV fluids. Monitor for symptomatic hypotension and orthostasis. 4. Check B12, folate levels. 5. Continue thyroid supplement. Endy Veloz M.D. DR: FAITH JOB#: [id number] CC: GINA
--- NOTE | 2019-09-26 18:15 | Consultation ---
DATE OF CONSULTATION: 09/24/2019 CARDIOLOGY CONSULTATION CONSULTING PHYSICIAN: Endy Veloz M.D. REFERRING PHYSICIAN: Brody Xiong M.D. REASON: Hypotension. HISTORY OF PRESENT ILLNESS: This is a 79-year-old female. She was admitted to the hospital several days ago with failure to thrive, dehydration, and electrolyte disturbances. She apparently has been eating poorly for several weeks. Her recently . She has been started on IV fluids and thyroid replacement therapy. She has had low range blood pressure today prompting this consultation. PAST MEDICAL HISTORY: Hypertension, hypothyroidism. ALLERGIES: No known drug allergies. MEDICATIONS: Prior to admission not known. Current medications reviewed and reconciled. FAMILY HISTORY: Noncontributory. REVIEW OF SYSTEMS: Otherwise cannot be reliably obtained from the patient. Pertinent data as outlined above. PHYSICAL EXAMINATION: VITAL SIGNS: Blood pressure 109/78, pulse 82, respirations 18, afebrile. Temperature earlier was 95.4. LUNGS: Bilateral breath sounds. HEENT: Temporal wasting. Dry mucous membranes. HEART: Regular rhythm rate. Normal S1, S2 with a 1/6 systolic murmur at base. ABDOMEN: Soft, nontender. EXTREMITIES: No edema. Venous duplex scan was negative for DVT. LABORATORY DATA: Labs from 09/22/2019 sodium 154, potassium 3.8, bicarb 29, BUN 39, creatinine 0.7. Albumin 2.8. IMPRESSION: 1. Metabolic encephalopathy. 2. Dehydration. 3. Hypovolemia. 4. Hypernatremia. 5. . 6. Hypothyroidism. 7. Acute kidney injury. 8. Hypotension due to above. PLAN: 1. Volume support with hypotonic IV fluids. 2. Antimicrobials. 3. Skin care. 4. Respiratory hygiene. 5. Consider further metabolic profile. 6. Thyroid replacement added. Endy Veloz M.D. DR: NASRIN JOB#: [id number] CC: GINA
--- NOTE | 2019-09-26 19:28 | NUR ---
HAND-OFF: Report given to KATINA Fajardo.
--- NOTE | 2019-09-26 19:35 | NUR ---
NURSE NOTES: Pt. received from KATINA Walker. Pt. AAOx4, on room air, no signs of pain, no signs of respiratory distress at this time. IV site right AC asymptomatic, intact, and patent; running D5W 50cc/hr. Bed is low and locked, side rails x2 up, bed alarm active, and call light is in reach. Will continue to monitor.
[2019-09-26 20:00] VITALS: BP 114/82
--- NOTE | 2019-09-26 21:30 | Progress Note ---
DATE: 09/26/2019 CARDIOLOGY PROGRESS NOTE SUBJECTIVE: The patient is refusing [facility] facility. Oral intake is improving. OBJECTIVE: VITAL SIGNS: Stable. LUNGS: Clear. CARDIAC: Regular. Normal S1, S2. A 1/6 systolic murmur at base. ABDOMEN: Soft. EXTREMITIES: No edema. LABORATORY DATA: Magnesium 2.2. B12, folate levels are normal. Cortisol level, pending. IMPRESSION: 1. Hypovolemia, dehydration, and hyponatremia, resolved. 2. Metabolic encephalopathy, improved. 3. Hypertension, recovered. 4. Hypothyroidism, now on replacement therapy. PLAN: 1. Nutritional support. 2. Mobilization. 3. Thyroid supplement. 4. Encouragement of oral intake. Endy Veloz M.D. DR: ELMER JOB#: [id number] CC:
[2019-09-27] VITALS: BP 114/73
--- NOTE | 2019-09-27 03:14 | NUR ---
NURSE NOTES: Pt. up to use commode to void with nurse assist. No pain and no respiratory distress. Reinforced pt. education regarding safety and use of call light. Will continue to monitor.
[2019-09-27 04:00] VITALS: BP 121/72
--- NOTE | 2019-09-27 07:30 | NUR ---
HAND-OFF: Report given to KATINA Escobar.
--- NOTE | 2019-09-27 07:34 | General Progress Note ---
Assessment/Plan Problem List: (1) UTI (urinary tract infection) ICD Codes: N39.0 - Urinary tract infection, site not specified SNOMED: 40471633 Qualifiers: Qualified Codes: N30.00 - Acute cystitis without hematuria (2) GA (acute kidney injury) ICD Codes: N17.9 - Acute kidney failure, unspecified SNOMED: 73415914, 0189191 (3) Failure to thrive in adult ICD Codes: R62.7 - Adult failure to thrive SNOMED: 679933842 Status: stable, not improved Assessment/Plan: pysch eval pending cont remeron thyroid replacement pt/o refusing snf placement family refusing to take pt home Subjective ROS Limited/Unobtainable: No Constitutional: Reports: malaise, weakness HEENT: Reports: no symptoms Cardiovascular: Reports: no symptoms Respiratory: Reports: cough Gastrointestinal/Abdominal: Reports: poor appetite Genitourinary: Reports: no symptoms Neurologic/Psychiatric: Reports: anxiety, depressed Endocrine: Reports: no symptoms Hematologic/Lymphatic: Reports: no symptoms Allergies: Coded Allergies: No Known Allergies (Unverified , 09/20/19) All Systems: reviewed and negative except above Subjective no events. w/o complaints. eating better. no fevers or chills. refusing snf(family requesting). family refusing to take pt home. Objective Last 24 Hour Vital Signs Date Time Temp Pulse Resp B/P (MAP) Pulse Ox O2 Delivery O2 Flow Rate FiO2 09/27/19 04:00 98.0 75 12 121/72 (88) 97 09/27/19 00:00 98.1 94 14 114/73 (87) 99 09/26/19 21:00 Room Air 09/26/19 20:00 97.6 87 12 114/82 (93) 97 09/26/19 16:00 98.4 78 16 135/73 (93) 98 09/26/19 12:00 98.3 70 17 130/80 (97) 99 09/26/19 09:00 Room Air 09/26/19 08:00 98.2 67 18 131/74 (93) 100 Intake and Output 09/26/19 09/27/19 19:00 07:00 Intake Total 650 ml 900 ml Output Total 400 ml Balance 650 ml 500 ml Intake Oral 500 ml 400 ml IV Total 150 ml 500 ml Output Urine Total 400 ml # Voids 5 3 Height (Feet): 5 Height (Inches): 6.00 Weight (Pounds): 120 Brody Xiong MD Sep 27, 2019 07:34
--- NOTE | 2019-09-27 07:43 | NUR ---
NURSE NOTES: Patient awake and alert and oriented,IV fluids infusing as ordered.patient sitting up in bed and eating breakfast.Call light within reach,bed alarm is on.
[2019-09-27 08:00] VITALS: BP 115/69
[2019-09-27] MEDS: Docusate 100mg cap ORAL SCH ×2 (08:44→17:50)
[2019-09-27] MEDS: Heparin 5000 units/ml inj SUBQ SCH (08:45)
--- NOTE | 2019-09-27 11:59 | NUR ---
*-* INSURANCE *-* ALL CLINICALS AND REVIEWS HAVE BEEN FAXED TO: JEFF WALTON PLEASE FAX THE REVIEW/CLINICAL TO FX: [phone] (USE THE ID# REF)
[2019-09-27 12:00] VITALS: BP_SYST 111; BP_SYST 144; BP_DIAS 56; BP_DIAS 74
--- NOTE | 2019-09-27 14:58 | NUR ---
CASE MANAGEMENT:REVIEW SI;FTT 98.9 94 12 144/74 96% RA IS;IVF D5W 50ML/HR HEPARIN SUBQ Q12HRS SYNTHROID QD MED SURG STATUS DCP;HOME WITH HOME HEALTH
--- NOTE | 2019-09-27 15:19 | Surgery Progress Note ---
Surgery Progress Note Subjective Symptoms: improved, tolerating diet, voiding well Additional Comments no acute events comfortable improving no complaints Objective Last 24 Hour Vital Signs Date Time Temp Pulse Resp B/P (MAP) Pulse Ox O2 Delivery O2 Flow Rate FiO2 09/27/19 12:00 98.9 83 21 144/74 (97) 96 09/27/19 09:24 Room Air 09/27/19 08:00 98.1 87 17 115/69 (84) 99 09/27/19 04:00 98.0 75 12 121/72 (88) 97 09/27/19 00:00 98.1 94 14 114/73 (87) 99 09/26/19 21:00 Room Air 09/26/19 20:00 97.6 87 12 114/82 (93) 97 09/26/19 16:00 98.4 78 16 135/73 (93) 98 I&O Intake and Output 09/26/19 09/27/19 19:00 07:00 Intake Total 650 ml 900 ml Output Total 400 ml Balance 650 ml 500 ml Intake Oral 500 ml 400 ml IV Total 150 ml 500 ml Output Urine Total 400 ml # Voids 5 3 Dressing: saturated Wound: clean Cardiovascular: RSR Respiratory: clear Abdomen: soft, non-tender, present bowel sounds Extremities: no edema, no tenderness, no cyanosis Plan Problems: (1) Decubitus ulcer Assessment & Plan: patient presented with large area of skin loss epidermal in sacral region with DTI pressure injury and associate incontinence component. currently a stage 2 decubitus ulcer with epidermal loss and dermal involvement but not deeper than dermis recovering doing well with movement wound washed and dressings applied discussed importance of care with patient and family wash daily with NS, apply therahoney and optifoam dressing to sacral wound daily and prn turn q2 hour off load pressure monitor for incontinence and change accordingly nutritional optimization cont with above care plan upon d/c patient more responsive to moving around and reducing pressure d/c planning (2) Failure to thrive in adult Assessment & Plan: DAILY ESTIMATED NEEDS: Needs based on Wound/ 51.8kg 25-30 kcals/kg [id number] total kcals 1.25-1.5 g protein/kg 65-78 g total protein 25-30 mL/kg 4285-6401 total fluid mLs NUTRITION DIAGNOSIS: Inadequate oral intake R/T decreased appetite, recent life stress as evidenced by pt admitted w/ FTT dx, 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 CURRENT DIET:Regular/ pureed moist PO DIET RECOMMENDATIONS: Liberalized REGULAR/ texture per [employer] RESOURCE TEACHER ADDITIONAL RECOMMENDATIONS: * Calibrated bedscale wt for accurate CBW * Wound healing: add MVI x1, Vit C 250mg QD, ZnSO4 220mg QD x 10 days add Enmanuel 1pkt BID * Add Glucerna TID w/ meals * Monitor BGs closely- A1C 6.4 * Consider appetite stimulant w/ con't poor PO * [employer] RESOURCE TEACHER eval for appropriate texture: pt states does not want pureed Osiel Corona Sep 27, 2019 15:19
--- NOTE | 2019-09-27 15:22 | NUR ---
NURSE NOTES: Preparing patient for discharged,patient has wound on sacral area,patient refusing dressing changed and not allowing for picture of sacral wound.Will attempt later when patient daughter arrives.
[2019-09-27 16:00] VITALS: BP 115/72
--- NOTE | 2019-09-27 17:50 | NUR ---
NURSE NOTES: Discharge with discharge instructions ,patient allow dressing change to the sacral area along with picture.Patient has her personal belongings,IV removed and ID Hospital band removed.Patient family member here and patient accompany down to private vehicle.patient has her cane.case assembler given the address to the patient daughter for Home Health arrangement,patient will be staying with Daughter.
--- NOTE | 2019-09-27 23:59 | Initial Psychiatric Evaluation ---
Psychiatry Consultation Psychiatry Consultation Chief Complaint: General Complaint Allergies: Coded Allergies: No Known Allergies (Unverified , 09/20/19) Past Psychiatric History: 79-year-old female. She was recently brought in to her daughter's house. According to the patient's daughter, she has not been eating well for several weeks.She has history of hypothyroidism and hypertensive heart disease. the pt is depressed and uncooperative with care. reluctant to take medications. poor insight Patient History History Provided By: Patient, Medical Record, PMD Objective Data Height (Feet): 5 Height (Inches): 6.00 Weight (Pounds): 120 Appearance: disheveled Behavior Mannerisms: good eye contact Affect: constricted Mood: depressed Thought Process: illogical Suicidal Ideation: no plan Assessment/Plan Problem List: (1) Failure to thrive in adult ICD Codes: R62.7 - Adult failure to thrive SNOMED: 240042218 Diagnosis [place] I: MDD benefits from remeron provided jason/Paramjit Betancur MD Sep 27, 2019 23:59
--- NOTE | 2019-09-28 03:45 | Progress Note ---
DATE: 09/27/2019 SUBJECTIVE: This patient is in bed. The patient has depressed mood, anhedonia, worthlessness, hopelessness, and decreasing appetite. She is going home. The patient is also uncooperative with the care. Poor insight. She was reluctant to take any antidepressants. MENTAL STATUS EXAMINATION: Alert and oriented x3. Mood is depressed. Affect is constricted. Congruent with mood. Thought process is concrete. Thought content, no suicidal or homicidal ideation. Cognition is intact. Insight and judgment are limited. ASSESSMENT: AXIS I: Major depressive disorder. AXIS II: Deferred. AXIS III: As above. AXIS IV: Low. AXIS V: 50. PLAN: 1. She would benefit from Remeron and antidepressant to stimulate her appetite. 2. Provide the patient with reality orientation and supportive therapy. Paramjit Knox M.D. DR: RIP JOB#: [id number] CC:
--- NOTE | 2019-09-28 05:45 | Progress Note ---
DATE: 09/27/2019 CARDIOLOGY PROGRESS NOTE SUBJECTIVE: The patient is refusing [facility] facility. OBJECTIVE: VITAL SIGNS: Blood pressure parameters are stable. LUNGS: Clear. CARDIAC: Regular. ABDOMEN: Soft. EXTREMITIES: No edema. IMPRESSION: Metabolically stabilized and euvolemic with controlled hypertension at this time with continued thyroid replacement therapy. No additional cardiovascular interventions planned. Endy Veloz M.D. DR: CHRISTINA JOB#: [id number] CC:
--- NOTE | 2019-09-29 16:07 | NUR ---
*-* INSURANCE *-* ALL CLINICALS AND REVIEWS HAVE BEEN FAXED TO: JEFF WALTON PLEASE FAX THE REVIEW/CLINICAL TO FX: [phone] (USE THE ID# REF) Addendum: 09/29/19 at 1608 by ITALIA BUTLER DISCHARGE INSTRUCTIONS HAVE BEEN FAXED NO D/C SUMMARY AVAILABLE
--- NOTE | 2019-10-04 10:30 | Discharge Summary ---
DATE OF ADMISSION: 09/20/2019 DATE OF DISCHARGE: 09/29/2019 ADMISSION DIAGNOSES: 1. Failure to thrive. 2. Altered mental status. 3. Depression. 4. Hypothyroidism. 5. Dehydration. DISCHARGE DIAGNOSES: 1. Failure to thrive. 2. Altered mental status. 3. Depression. 4. Hypothyroidism. 5. Dehydration. The patient is a 79-year-old female with a history of hypertension, hypothyroidism, brought in by family members with complaints of failure to thrive, weakness, and confusion. She was diagnosed with a possible UTI as well as dehydration. She is hydrated. She was resumed back on thyroid replacement therapy. A venous duplex of the legs was unremarkable. Her dehydration improved with IV fluids. A CT scan of the chest and abdomen were recommended because of failure to thrive, weight loss, malaise, weakness, but the patient refused. The patient's p.o. intake improved. She was seen by Psychiatry and placed on antidepressants. On discharge, she was stable. She was discharged home. She has been asked to return for any worsening poor p.o. intake or confusion. Please see discharge medication list for discharge medications. DIET: Regular diet. ACTIVITY: Ad-Joseline. Brody Xiong M.D. DR: FERMÍN JOB#: [id number] CC:
== END 2019-09-27 18:20 | disposition home health service (06) | DRG 640 ==
LOC: EDBD 19:30 → EMR 21:30 → EDBEDREQSVC 21:36 → EDBEDREQ 22:11 → 4E 22:19
DX: E86.0 Dehydration (principal); G93.41 Metabolic encephalopathy; E43 Unspecified severe protein-calorie malnutrition; N39.0 Urinary tract infection, site not specified; N17.9 Acute kidney failure, unspecified; E87.1 Hypo-osmolality and hyponatremia; L89.152 Pressure ulcer of sacral region, stage 2; I11.9 Hypertensive heart disease without heart failure; R62.7 Adult failure to thrive; E86.1 Hypovolemia; I95.9 Hypotension, unspecified
CPT/HCPCS: 36415; 80053; 81001; 82330; 82533; 82607; 82746; 83036; 83735; 84443; 84484; 85025; 85610; 85730; 92610; 93005; 93306; 93970; 96360; 99285; J7030; J8499